=== PATIENT | female | born 1995 | race Caucasian/White ===

== ENCOUNTER 2021-02-17 14:04 | Emergency (ER) | payer OTHER, SELFPAY ==
--- NOTE | ~2021-02-17 | US_ITS ---
US pelvic complete w TV DATE: 02/17/2021 18:54 INDICATION: Recent . Pelvic pain. TECHNIQUE: Real-time imaging via transabdominal and transvaginal approaches COMPARISON: 03/06/2021 CT abdomen pelvis FINDINGS: The uterus measures 11.3 cm height, 4.2 cm anteroposterior and 5.2 cm transverse dimension. Normal central endometrial echo complex, measuring approximately 5 mm AP dimension. Right ovary measures 2.5 x 2.4 x 2.0 cm. Left ovary measures 2.4 x 2.7 x 2.5 cm. The left ovary conta ins an approximately 1.9 cm cyst. There is vascular flow to both ovaries. No pelvic free fluid collec tion is detected. IMPRESSION: Approximately 1.9 cm left ovarian cyst Reviewed, dictated and finalized at [facility]. Reviewed, dictated and finalized at [facility].
--- NOTE | ~2021-02-17 | CT_ITS ---
EXAMINATION: CT abdomen pelvis w con DATE: 02/17/2021 17:36 INDICATION: Right lower quadrant abdominal pain.] TECHNIQUE: Computed tomography (CT) of the abdomen and pelvis was performed with 100 cc Omnipaque 350 intravenous contrast. Automated exposure control and iterative reconstruction technique were employ ed. Exam dose: 313.51 mGy-cm total exam DLP. COMPARISON: None. FINDINGS: The lung bases are clear. Normal heart size. No pericardial or pleural effusion. There is a small sliding hiatal hernia. The liver, gallbladder, spleen, pancreas, adrenal glands and kidneys are unremarkable. No bile duct or pancreatic duct dilatation. No urinary tract calculus or hydroureteronephrosis. Normal caliber of the abdominal aorta. No intraperitoneal or retroperitoneal or pelvic mass lesion o r lymphadenopathy or ascites. Left ovarian 1.9 cm ovarian cystic lesion. Normal appendix. No bowel obstruction or bowel wall thickening or pneumoperitoneum. There is a small fat containing umbilical hernia. Included skeletal structures are unremarkable. IMPRESSION: Small sliding hiatal hernia Left ovarian cystic lesion Normal appendix Reviewed, dictated and finalized at [facility]. Reviewed, dictated and finalized at location [facility].
[2021-02-17 14:08] VITALS: BP 134/70; PULSE 97; RESP 18; TEMP 36.7; O2SAT 100
[2021-02-17 14:21] LABS: Basophils Percent Auto 0.4 % (0.2-1.2); Eosinophils Absolute Auto 0.1 K/mm3 (0-0.3); Eosinophils Percent Auto 1.6 % (0-4.4); Hematocrit 37.2 % (37.0-47.0); Hemoglobin 12.4 g/dL (12.0-15.0); Immature Granulocyte Absolute 0.02 K/mm3 (0.00-0.031); Immature Granulocyte Percent A 0.2 % (0-0.5); Lymphocytes Absolute Auto 1.98 K/mm3 (0.9-3.2); Lymphocytes Percent Auto 23.7 % (18.3-44.2); Mean Corpuscular HGB Conc 33.3 g/dl (32-36); Mean Platelet Volume 9.6 fl (7.4-10.4); Monocytes Absolute Auto 0.4 K/mm3 (0.1-0.6); Monocytes Percent Auto 4.8 % (2.6-8.5); Neutrophils Absolute Auto 5.8 K/mm3 (1.3-6.7); Neutrophils Percent Auto 69.3 % (45.5-73.1); Platelet Count Result 221 k/mm3 (150-375); Red Cell Distribution Width 12.4 % (11.5-14.5); White Blood Count 8.4 K/mm3 (4.5-10.0)
[2021-02-17 14:31] LABS: Add Urine Microscopic? YES; Appearance Urine Cloudy (Clear); Bacteria Urine 1+ /hpf; Bilirubin Urine Negative (Negative); Blood Urine 3+ (Negative); Color Urine Yellow (Yellow); Glucose Urine UA Negative (Negative); Ketones Urine Negative (Negative); Leukocyte Esterase Ur 3+ LEU/UL (Negative); Mucus Urine Rare /lpf; Nitrate Urine Negative (Negative); Protein Urine 1+ mg/dL (Negative); Specific Grav Ur 1.016 (1.001-1.035); Squamous Epithelial Cell Urine Many /hpf (Few); Urobilinogen Urine Negative mg/dL (<2.0); WBC Urine >75 /hpf
[2021-02-17 14:31] LABS: Alanine Aminotransferase 15 U/L (4-35); Albumin Level 4.3 g/dL (3.5-5.1); Alkaline Phosphatase 42 U/L (38-126); Anion Gap 8 mmol/L (8-16); Aspartate Amino Transferase 22 U/L (14-36); Bilirubin,Total 0.3 mg/dL (0.2-1.3); Blood Urea Nitrogen 4 mg/dL (7-17); Calcium 9.5 mg/dL (8.4-10.2); Carbon Dioxide 25 mmol/L (22-30); Chloride 109 mmol/L (98-107); Estimated CRCL calculation 93 ml/min; Estimated Glomerular Filt Rate > 60; Glucose 108 mg/dL (65-105); Lipase 64 U/L (23-300); Potassium 3.6 mmol/L (3.4-5.0); Sodium 142 mmol/L (137-145)
--- NOTE | 2021-02-17 16:21 | ED.ABDPAIN ---
HPI - Abdominal Pain General Chief Complaint: Abdominal Pain Stated Complaint: flank pain Time Seen by Provider: 02/17/21 16:20 Source: patient Mode of arrival: ambulatory Limitations: no limitations History of Present Illness HPI narrative: Patient is a 25-year-old female who presents for evaluation of right-sided abdominal pain. Pain has been present over the past 48 hours. Patient recently had a surgical at [facility] on February 12. Patient denies any vaginal discharge or bleeding. No lower pelvic pain. Patient denies any cough or shortness of breath. Pain is sharp, cramping in nature, with radiation to the right back. No upper abdominal pain. No fever, chills, nausea or vomiting. Related Data Allergies Allergy/AdvReac Type Severity Reaction Status Date / Time No Known Allergies Allergy Verified 02/17/21 17:29 Review of Systems Review of Systems: Narrative: CONSTITUTIONAL: Denies fever, chills, or sweats. EYES: Denies visual changes, redness, or discharge. ENT: Denies rhinorrhea, congestion, sore throat, or otalgia. CARDIOVASCULAR: Denies chest pain, palpitations, or edema. RESPIRATORY: Denies cough or dyspnea. GASTROINTESTINAL: Right-sided abdominal pain, denies nausea and vomiting GENITOURINARY: Denies dysuria or hematuria. SKIN: Denies rash or itching. MUSCULOSKELETAL: Denies back pain, joint pain, or myalgia. NEUROLOGIC: Denies headache, numbness, or weakness. [facility] Social History Social History (Updated 02/17/21 @ 17:03 by Lela Porter MD) Smoking status: Never smoker Alcohol intake: never Substance use: never Gender identity (if verbalized by the patient): Female Exam Narrative: Exam Narrative: GENERAL: Awake, alert, conversant HEAD: Normocephalic, atraumatic. EYES: PERRLA and EOMI. ENT: Nares clear, no rhinorrhea or epistaxis. Mucous membranes moist. NECK: Supple. CHEST: No respiratory distress, breathing even and non labored HEART: Regular rate, sinus rhythm ABDOMEN:Non distended, tender in the right middle quadrant, right lower quadrant, no rebound, no guarding, no ecchymoses, no suprapubic tenderness, nonrigid EXTREMITIES: Normal range of motion. No edema. SKIN: Warm, dry, no rash. NEURO:No focal deficits. Alert and oriented x3 Course Vital Signs Vital signs: Vital Signs Temperature 36.7 C 02/17/21 14:08 Pulse Rate 97 02/17/21 14:08 Respiratory Rate 18 02/17/21 14:08 Blood Pressure 134/70 02/17/21 14:08 Pulse Oximetry 100 02/17/21 14:08 Temperature 36.7 C 02/17/21 14:08 Pulse Rate 82 02/17/21 17:51 Respiratory Rate 16 02/17/21 17:51 Blood Pressure 129/84 02/17/21 17:51 Pulse Oximetry 98 02/17/21 17:51 MDM - Abdominal Pain MDM Narrative Medical decision making narrative: Patient presenting for evaluation of right lower abdominal pain after a surgical 5 days ago. At the time of assessment, ABCs are intact and vital signs are stable. Patient is afebrile, no hypotension. No bruising on exam. No significant vaginal discharge or bleeding. Patient does have some reproducible right-sided abdominal pain on exam without guarding. Mild right flank pain. IV access obtained and labs are drawn. Laboratory results are reassuring. No leukocytosis or anemia. No electrolyte derangement or acute kidney injury. CT abdomen/pelvis shows no evidence of nephrolithiasis, vascular pathology, fluid collection, hematoma or postsurgical complication. There is a ovarian cyst thus an ultrasound was obtained to rule out torsion of which there was no evidence of torsion. Patient was given a first dose of antibiotics which she tolerated well. She will be discharged home on oral Keflex. She was advised to return should symptoms change or worsen. Differential Diagnosis Differential diagnosis: Likely abdominal pain, calculus of kidney, gastroenteritis, pancreatitis and small bowel obstruction Lab Data Attestation: I reviewed the patient's lab r
[2021-02-17] MEDS: SODIUM CHLORIDE 0.9% IV 1,000 ML 999 ML IV CONT (17:28)
[2021-02-17 17:51] VITALS: BP 129/84; PULSE 82; RESP 16; O2SAT 98
[2021-02-17 19:20] VITALS: BP 126/90; PULSE 76; RESP 18; O2SAT 99
== END 2021-02-17 19:28 | disposition home or self-care (01) ==
PROVIDERS: Emergency Provider Emergency Medicine; PCP Family Medicine
DX: N12 Tubulo-interstitial nephritis, not specified as acute or chronic (principal); N83.202 Unspecified ovarian cyst, left side; K44.9 Diaphragmatic hernia without obstruction or gangrene; Z98.890 Other specified postprocedural states
CPT/HCPCS: 36415; 74177; 76830; 76856; 80053; 81001; 81025; 83690; 85025; 87086; 87088; 96374; 96375; 99284; J0131; J0696; J7030; Q9967

== ENCOUNTER 2021-09-23 10:51 | Observation (INO) | payer OTHER, SELFPAY ==
[2021-09-23 11:15] VITALS: BP 129/61; PULSE 103
[2021-09-23 11:20] VITALS: BMI 28.9
[2021-09-23 11:41] LABS: Add Urine Microscopic? YES; Appearance Urine Clear (Clear); Bacteria Urine Trace /hpf; Bilirubin Urine Negative (Negative); Blood Urine Negative (Negative); Color Urine Yellow (Yellow); Glucose Urine UA Negative (Negative); Ketones Urine Negative (Negative); Leukocyte Esterase Ur 2+ LEU/UL (NEGATIVE); Mucus Urine Rare /lpf; Nitrate Urine Negative (Negative); Protein Urine Negative (Negative); RBC Urine 0-2 /hpf (0-2); Specific Grav Ur 1.016 (1.001-1.035); Squamous Epithelial Cell Urine Moderate /hpf (Few); Urobilinogen Urine Negative mg/dL (<2.0)
--- NOTE | 2021-09-27 09:59 | P.PNOB_ITS ---
OB - Triage/Final Diagnosis Visit Information Reason for evaluation: threatened labor Comments/Additional reasons for admission: I have assessed the risk for this patient, Brandi Javier, and determined that she would benefit from observation care. Evaluation Laboratory results: Laboratory Tests 09/23/21 11:15 Urine Color Yellow Urine Appearance Clear Urine pH 7.0 Ur Specific [place] 1.016 Urine Protein Negative Urine Glucose (UA) Negative Urine Ketones Negative Ur Blood (Man) Negative Urine Nitrate Negative Urine Bilirubin Negative Urine Urobilinogen Negative Ur Leukocyte Esterase 2+ H Urine RBC 0-2 Urine WBC 4-6 H Ur Squamous Epith Cells Moderate H Urine Bacteria Trace Urine Mucus Rare
== END 2021-09-23 12:25 | disposition home or self-care (01) ==
PROVIDERS: Admitting Provider Obstetrics & Gynecology; PCP Family Medicine; Visit Provider Obstetrics & Gynecology
DX: O47.00 False labor before 37 completed weeks of gestation, unspecified trimester (principal); Z3A.00 Weeks of gestation of pregnancy not specified
CPT/HCPCS: 81001; 84112; 87086; 87088; G0378; G0379

== ENCOUNTER 2021-12-15 21:22 | Inpatient (IN) | payer OTHER, SELFPAY ==
--- OUTSIDE RECORDS SUMMARY | 2021-12-15 21:28 | XMS_ITS ---
:1995 Author Care Team Providers Name Role Phone JEANNE RIVERA MD Primary Care Provider [phone] Allergies Code Code System Name Reaction Severity Status Onset NKDA ? Medications Name Status Start Date Stop Date ? ? albuterol sulfate HFA 90 mcg/actuation Active ? Not available aerosol inhaler azelastine 0.05 % eye drops Active ? Not available azithromycin 250 mg tablet Active ? Not a vailable cephalexin 500 mg capsule Completed ? 2020 TAKE 1 CAPSULE BY MOUTH EVERY 8 HOURS ondansetron 4 mg disintegrating tablet Completed ? 06/22/2021 DISSOLVE 1 TABLET IN MOUTH EVERY 8 HOURS NEEDED ondansetron HCl 4 mg tablet Completed ? 02/2021 Vitamins Plus Low Iron 27 mg Active ? Not available iron-1 mg tablet sertraline 50 mg tablet Completed ? 06/22/20 21 Problems Name Status Onset Date Source ? Active 06/29/2021 ? Procedures Date Name Performed by ? ? Orthopedic Surgery Information not avai labalexander Notes: left hand pin placed 07/20/2021 US, Obstetric, Maternal Informatio n not available Evaluation + Anatomy Results Lab Results Date Name Specimen Result Interpretation Description Value Range Status Address ? 07/20/2021 CT + NG RNA, ? Chlamydia negative negative Final [place] PCR, by [facility]
--- NOTE | 2021-12-15 21:34 | LDADM ---
This patient, Brandi Javier, was admitted to Labor/Delivery/Recovery 106 on 12/15/21 at 21:22. Plans for labor, pain management and were discussed with patient. Patient/family oriented to hospital policies and general routines including ID bracelet, bed and alarms, visiting hours, pain management, procedures, bathroom and other care routines, personal items, smoking policy, room service/diet and guest tray routines, security routines, and visiting hours. Patient/Family are encouraged to report perceived risks to care and to ask questions if they do not understand what they are told or what they should do. See [facility] for further documentation.
[2021-12-15 21:57] LABS: Basophils Percent Auto 0.3 % (0.2-1.2); Eosinophils Absolute Auto 0.2 K/mm3 (0-0.3); Eosinophils Percent Auto 1.7 % (0-4.4); Hematocrit 32.5 % (37.0-47.0); Hemoglobin 10.5 g/dL (12.0-15.0); Immature Granulocyte Absolute 0.05 K/mm3 (0.00-0.031); Immature Granulocyte Percent A 0.4 % (0-0.5); Lymphocytes Absolute Auto 2.41 K/mm3 (0.9-3.2); Lymphocytes Percent Auto 20.5 % (18.3-44.2); Mean Corpuscular HGB Conc 32.3 g/dl (32-36); Mean Corpuscular Hemoglobin 28.8 pg (26-34); Mean Corpuscular Volume 89.3 fl (80-100); Mean Platelet Volume 10.3 fl (7.4-10.4); Monocytes Absolute Auto 0.8 K/mm3 (0.1-0.6); Monocytes Percent Auto 6.7 % (2.6-8.5); Neutrophils Absolute Auto 8.3 K/mm3 (1.3-6.7); Neutrophils Percent Auto 70.4 % (45.5-73.1); Platelet Count Result 297 k/mm3 (150-375); Red Blood Count 3.64 M/mm3 (4.2-5.4); Red Cell Distribution Width 13.3 % (11.5-14.5); White Blood Count 11.8 K/mm3 (4.5-10.0)
[2021-12-15 22:07] VITALS: BP 119/75; PULSE 82; RESP 16; TEMP 37.1
[2021-12-15 22:11] VITALS: BMI 30.6
[2021-12-15 22:46] LABS: HIV 1/2 Ab P24 Ag Result Negative (Negative)
[2021-12-15] MEDS: LACTATED RINGERS 1,000 ML 999 ML IV CONT (23:20)
[2021-12-16] VITALS (155 sets, daily range): BP systolic 72–147; BP diastolic 40–86; PULSE 59–103; RESP 16–18; TEMP 36.4–37.3; O2SAT 95–100
[2021-12-16] MEDS: OXYTOCIN 30 UNITS/NS 500 ML 30 UNITS/500 ML BAG IV CONT
--- NOTE | 2021-12-16 05:26 | WPDANESEPP ---
Anes - Eval Pre Procedure Date/Time: 12/16/21 05:26 Pre Op Diagnosis: IOL Patient Data Age: 26 Gender: F Height: 1.63 m Weight: 81 kg Last Vital Signs Temp 37.1 C 12/15/21 22:07 Pulse 66 12/16/21 05:16 Resp 16 12/15/21 22:07 BP 106/57 L 12/16/21 05:16 Allergies Allergy/AdvReac Type Severity Reaction Status Date / Time No Known Allergies Allergy Verified 12/09/21 08:57 Home Medications Medication Instructions Recorded Confirmed Type vitamin with calcium 1 tablet PO DAILY 09/26/21 12/09/21 History no.72-iron 27 mg-folic acid 1 mg tablet Laboratory Tests 12/15/21 12/15/21 12/15/21 21:49 21:49 21:49 WBC 11.8 K/mm3 H K/mm3 (4.5-10.0) RBC 3.64 M/mm3 L M/mm3 (4.2-5.4) Hgb 10.5 g/dL L g/dL (12.0-15.0) Hct 32.5 % L % (37.0-47.0) MCV 89.3 fl fl (80-100) MCH 28.8 pg pg (26-34) MCHC 32.3 g/dl g/dl (32-36) RDW 13.3 % % (11.5-14.5) Plt Count 297 k/mm3 k/mm3 (150-375) MPV 10.3 fl fl (7.4-10.4) Immature Gran % (Auto) 0.4 % % (0-0.5) Neut % (Auto) 70.4 % % (45.5-73.1) Lymph % (Auto) 20.5 % % (18.3-44.2) Carver % (Auto) 6.7 % % (2.6-8.5) Eos % (Auto) 1.7 % % (0-4.4) Baso % (Auto) 0.3 % % (0.2-1.2) Lymph # (Auto) 2.41 K/mm3 K/mm3 (0.9-3.2) Carver # (Auto) 0.8 K/mm3 H K/mm3 (0.1-0.6) Eos # (Auto) 0.2 K/mm3 K/mm3 (0-0.3) Baso # (Auto) 0.0 K/mm3 K/mm3 (0.0-0.1) Abs Immat Gran (auto) 0.05 K/mm3 H K/mm3 (0.00-0.031) Absolute Neuts (auto) 8.3 K/mm3 H K/mm3 (1.3-6.7) Absolute Nucleated RBC 0.0 K/mm3 K/mm3 (0.0-0.012) Nucleated RBC % 0.0 % % (0.0-0.2) RPR Pending HIV 1&2 Ab/P24 Ag 4thGn Negative (Negative) Blood Type Antibody Screen 12/15/21 21:49 WBC RBC Hgb Hct MCV MCH MCHC RDW Plt Count MPV Immature Gran % (Auto) Neut % (Auto) Lymph % (Auto) Carver % (Auto) Eos % (Auto) Baso % (Auto) Lymph # (Auto) Carver # (Auto) Eos # (Auto) Baso # (Auto) Abs Immat Gran (auto) Absolute Neuts (auto) Absolute Nucleated RBC Nucleated RBC % RPR HIV 1&2 Ab/P24 Ag 4thGn Blood Type A Positive Antibody Screen Negative Patient hx anesthesia problems: none Family hx anesthesia problems: none Results Review: All pre-operative results and documents have been reviewed as part of the pre-operative evaluation. [facility] Past Medical History Medical History Anxiety and depression post depression took meds x 1 week/ no meds currently Surgical History Surgical History H/O major orthopedic surgery left hand pin placed Family History Family History Other No pertinent family history Social History Social History Smoking status: Never smoker Second hand tobacco smoke exposure: No Alcohol intake: never Substance use: never Gender identity (if verbalized by the patient): Female Spiritual care concerns: No Exam Day of Procedure 12/16/21 05:26 Patient weight: obese Heart: regular rate and rhythm Lungs: clear to auscultation Airway: Mallampati scale class II Neurological: alert and oriented
[2021-12-16] MEDS: LACTATED RINGERS 1,000 ML 125 ML IV CONT ×2 (07:46→08:31)
[2021-12-16] MEDS: fentaNYL CITRATE INJ (*CRX) 100 MCG/2 ML VIAL 50 MCG IV PUSH (07:49)
[2021-12-16] MEDS: PHENYLEPHRINE 1,000 MCG/10 ML SYRINGE 100 MCG IV PUSH ×2 (08:32→12:56)
[2021-12-16 11:12] LABS: Rapid Plasma Reagin Non-Reactive (NonReactive)
[2021-12-16] MEDS: ONDANSETRON INJ 4 MG/2 ML VIAL IV PUSH (12:58)
--- NOTE | 2021-12-16 14:17 | WPDHPUPDATE1 ---
History and Physical Update Update Date/Time: 12/16/21 14:17 History and Physical has been reviewed, including an updated exam of the patient. There are NO changes in the patient's condition. Risks, benefits, and alternatives have been discussed and questions answered. Patient agrees to proceed with procedure.
--- NOTE | 2021-12-16 14:17 | WPDOBADMIT ---
Obstetrics - Admit Note Admission Note: record reviewed. No pertinent additions to the history and/or any subsequent changes in the physical findings that are not consistent with the expected course of the were found. Additions to the history and/or subsequent changes in the physical findings follow. None.
--- NOTE | 2021-12-16 14:18 | PM.OBPRVD ---
OB - Delivery Note Procedure Induction method: Per Pitocin Protocol Delivery augmentation: Pitocin Delivery monitor: External FHT and External Uterine Route of delivery: Episiotomy description: None Laceration Description: None Specimen: No Quantitative Blood Loss (ml): 250 Anesthesia type: Epidural Disposition: Floor Narrative: Patient prepped and draped usual manner for this procedure. Maternal expulsive efforts delivered vertex without difficulty. Rest of baby was delivered cord clamped and cut and placenta delivered spontaneously. Cervix vagina vulva were inspected with no lacerations or tears. Uterus was well contracted with no significant bleeding. Patient are procedure well sent with immediate postoperative condition of mother baby both excellent. Baby Weeks of gestation at delivery: 39 gender: Female Weight (pounds): 6 Weight (ounces): 15 presentation: vertex Placenta delivery description: Spontaneous Cord Vessel Description: 3 Vessels score one minute: 8 score five minutes: 8 AMG Delivery Billing Delivery Delivery: Delivery Charge
[2021-12-16] MEDS: OXYTOCIN 30 UNITS/NS 500 ML 30 UNITS/500 ML BAG 125 UNITS IV CONT (14:24)
[2021-12-16] MEDS: WITCH HAZEL 40 PADS 1 PAD TOPICAL (16:45)
[2021-12-16] MEDS: BENZOCAINE 20% AER SPR (*SP) 56 GM CAN 1 SPRAY TOPICAL (16:45)
[2021-12-16] MEDS: IBUPROFEN 600 MG TABLET PO (16:45)
--- NOTE | 2021-12-16 17:25 | PC.NURSE ---
Patient transferred to post room #292 per wheelchair. Support person present. Oriented to unit, room, information board, rooming in, admission packet and security measures. Patient verbalizes understanding.
[2021-12-17 04:45] VITALS: BP 115/78; PULSE 87; RESP 18; TEMP 37.2; O2SAT 100
[2021-12-17 05:10] LABS: Hematocrit 31.2 % (37.0-47.0)
[2021-12-17 08:15] VITALS: BP 100/50; PULSE 71; RESP 20; TEMP 36.6; O2SAT 100
[2021-12-17] MEDS: IBUPROFEN 600 MG TABLET PO (08:42)
[2021-12-17] MEDS: MULTIVIT/MIN/PREN/FOL AC/IRON TABLET 1 TAB PO (08:42)
--- NOTE | 2021-12-17 09:35 | PM.OBPRVD ---
OB - Delivery Note Procedure Laceration Description: None Anesthesia type: Epidural Baby Weeks of gestation at delivery: 39 gender: Female Weight (pounds): 6 Weight (ounces): 15 presentation: vertex Placenta delivery description: Spontaneous Cord Vessel Description: 3 Vessels score one minute: 8 score five minutes: 8
--- NOTE | 2021-12-17 09:35 | PM.OBDSVD ---
DS: Admitting Diagnosis Discharge Date 12/17/2021 Admitting Diagnosis pregnancvy OB - DS: Summary OB Procedures : None OB Procedures Intrapartum: Spontaneous Vag Delivery OB Procedures: : None Time Spent with Patient Time attestation: Total time spent providing and/or coordinating discharge services: DS: Data Data Completed and Pending Labs on day of discharge: Labs from last 24 hours 12/17/21 12/15/21 04:48 21:49 Hgb 10.0 L Hct 31.2 L RPR Non-reactive Discharge Plan Discharge Discharging Clinician: Jersey Ribera Patient Disposition: Home, Self-Care Activity: as tolerated Diet: as tolerated Patient Instructions: Antibiotic Form Stand Alone Forms: General Discharge Information Follow-up/Referrals: Jersey Ribera MD [Physician] - 3 Weeks Discharge Medications: New ibuprofen 600 mg Tablet 600 mg PO Q6H PRN (Reason: Cramping) Qty: 30 RF: 0 Continued Vitamin Plus Low Iron 27 mg iron- 1 mg tablet 1 tablet PO DAILY RF: 0 Date of admission: 12/15/21 21:22 Primary Care Provider: Jud,Raad Max Admitting Provider: Jersey Ribera Attending physician on admission: Jersey Ribera Condition: Stable
[2021-12-17 12:00] VITALS: BP 122/67; PULSE 78; RESP 16; TEMP 36.3; O2SAT 99
== END 2021-12-17 15:20 | disposition home or self-care (01) | DRG 560 ==
LOC: ANHLDR 21:26 → ANHOB2 12-16 17:48
PROVIDERS: Admitting Provider Obstetrics & Gynecology; PCP Family Medicine; Visit Provider Obstetrics & Gynecology
DX: O76 Abnormality in fetal heart rate and rhythm complicating labor and delivery (principal); Z3A.39 39 weeks gestation of pregnancy; Z37.0 Single live birth
CPT/HCPCS: 36415; 85014; 85018; 85025; 86592; 86703; 86850; 86900; 86901; A9270; G0432; J2370; J2405; J2590; J2795; J3010; J7120